=== PATIENT | male | born 1980 | race Two or more races ===

== ENCOUNTER 2020-09-01 21:29 | Emergency (ER) | payer OTHER ==
[2020-09-01] MEDS ORDERED: Lactated Ringers 1,000 ML IV ONE (21:39)
[2020-09-01] MEDS ORDERED: Ondansetron 4 MG/2 ML SDV IVPUSH ONE (21:41)
[2020-09-01] MEDS ORDERED: Diphtheria,Pertussis(Acell),Tetanus Vaccine 0.5 ML Syringe IM ONE (21:41)
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
[2020-09-01] MEDS ORDERED: Lidocaine 1% 10 ML MDV INJECT ONE (22:59)
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
== END 2020-09-02 04:38 | disposition home or self-care (01) ==
LOC: JD.ED 21:29
DX: S22.42XA Multiple fractures of ribs, left side, initial encounter for closed fracture (principal); S51.011A Laceration without foreign body of right elbow, initial encounter; S01.511A Laceration without foreign body of lip, initial encounter; S30.1XXA Contusion of abdominal wall, initial encounter; V89.2XXA Person injured in unspecified motor-vehicle accident, traffic, initial encounter
CPT/HCPCS: 12001; 12011; 36415; 70450; 71260; 72125; 72128; 72131; 73070; 74177; 80053; 80307; 82150; 85025; 85610; 85730; 86850; 86900; 86901; 96374; 99285; J2001; J2405; J7120; 99284